=== PATIENT | male | born 1970 | race Caucasian/White ===

== ENCOUNTER 2023-04-07 17:27 | Emergency (ER) | payer SELFPAY ==
[2023-04-07] VITALS (8 sets, daily range): BP systolic 126–144; BP diastolic 85–102
[~2023-04-07] VITALS: Ht 167.6 cm; Wt 72.0 kg
[2023-04-07] MEDS ORDERED: NAPROXEN500 MG PO (18:41)
[2023-04-07] MEDS ORDERED: TRAMADOL HYDROC50 M1 PO (18:41)
== END 2023-04-07 19:30 | disposition home or self-care (01) | DRG 605 ==
LOC: ED 17:27
DX: S50.11XA Contusion of right forearm, initial encounter (principal); W55.22XA Struck by cow, initial encounter; Y92.79 Other farm location as the place of occurrence of the external cause

== ENCOUNTER 2024-03-04 17:45 | Emergency (ER) | payer SELFPAY ==
[~2024-03-04] VITALS: Ht 167.6 cm; Wt 77.1 kg
[~2024-03-04 17:45] MED LIST: NAPROXEN500 MG PO; TRAMADOL HYDROC50 M1 PO
[2024-03-04] MEDS ORDERED: BACTRIM DS1 TAB PO (18:01)
[2024-03-04 18:11] VITALS: BP 138/101
[2024-03-04 18:17] VITALS: BP 138/101
== END 2024-03-04 18:27 | disposition home or self-care (01) | DRG 603 ==
LOC: ED 17:45
DX: L03.114 Cellulitis of left upper limb (principal); T63.481A Toxic effect of venom of other arthropod, accidental (unintentional), initial encounter